=== PATIENT | female | born 1950 | race Caucasian/White ===

== ENCOUNTER 2017-06-15 08:50 | Emergency (ER) | payer OTHER ==
[2017-06-15] MEDS ORDERED: methylPREDNISolone Sod Succ/PF 125 MG/2 ML VIAL ONE (09:23)
[2017-06-15] MEDS ORDERED: diphenhydrAMINE 50 MG/ML VIAL ONE (09:23)
[2017-06-15] MEDS ORDERED: Water For Inject, Bacteriostat 30 ML ONE (09:24)
[2017-06-15] MEDS ORDERED: Famotidine/PF 20 mg/2ml Vial ONE (09:25)
== END 2017-06-15 11:29 | disposition home or self-care (01) ==
LOC: ERS 08:50
DX: L50.0 Allergic urticaria (principal); Z79.899 Other long term (current) drug therapy
CPT/HCPCS: 96374; 96375; J1200; J2930; S0028

== ENCOUNTER 2017-11-05 17:12 | Inpatient (IN) | payer OTHER ==
[2017-11-05] MEDS ORDERED: Famotidine 20 MG TAB ONE (18:08)
[2017-11-05] MEDS ORDERED: diphenhydrAMINE 50 MG/ML VIAL ONE (18:09)
[2017-11-05] MEDS ORDERED: methylPREDNISolone Sod Succ/PF 125 MG/2 ML VIAL ONE (19:20)
[2017-11-05] MEDS: Sodium Chloride 0.9% 1,000 ML IV SCH (22:41)
[2017-11-05 23:56] VITALS: BMI 32.3
[2017-11-06] MEDS ORDERED: methylPREDNISolone Sod Succ/PF 125 MG/2 ML VIAL IVP SCH ×2 (04:00→09:45)
[2017-11-06] MEDS ORDERED: Ondansetron HCl/PF 4 MG/2 ML Vial IVP PRN (04:43)
[2017-11-06] MEDS ORDERED: Acetaminophen 325 MG TAB PO PRN (04:43)
[2017-11-06] MEDS ORDERED: Ondansetron ODT 4 MG TAB PO PRN (04:43)
[2017-11-06] MEDS ORDERED: Senokot 8.6 MG TAB PO PRN (04:43)
--- NOTE | 2017-11-06 05:16 | HP ---
DATE OF ADMISSION: 11/05/2017 The patient was seen and examined on 11/05/2017. CHIEF COMPLAINT: Generalized itching with lip swelling of 1 day duration. PRIMARY CARE PHYSICIAN: Dr. Good. 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 HISTORY OF PRESENT ILLNESS: The patient is a 67-year-old female with 2 episodes of angioedema in the last 2 years, presented to the emergency room with above symptoms. Around 5:30 a.m. when she woke up, she noticed that her lips were swollen. She also had some generalized rash. At Dr. Good's office, she received intramuscular steroid injection. Her symptoms, however, continued to progress despite taking prednisone. She then presented to the emergency room. She denies any insect bite or eating any new food. No swallowing difficulty, wheezing or shortness of breath reported. The patient had taken Aleve yesterday. PAST MEDICAL HISTORY: Two episodes of angioedema. The patient had extensive workup with hairspring inspector, Dr. Luis Ch in 05/2017. Per patient report, she was found to have mild CEDAR allergy. Otherwise, her workup was negative. PAST SURGICAL HISTORY: 1. Bilateral total hip replacement. 2. Left knee surgery. ALLERGIES: No known drug allergies. HOME MEDICATIONS: Prednisone. She cannot recollect all other home meds. SOCIAL HISTORY: The patient currently lives at home with her family. Makes her own decisions with the help of her family. She denies any smoking or drug use. She drinks one beer every night. FAMILY HISTORY: Positive for hypertension, rheumatoid arthritis, Crohn's disease as well as malignancy. REVIEW OF SYSTEMS: The following complete review of systems was negative, unless otherwise mentioned in the HPI or below: Constitutional: Weight loss or gain, ability to conduct usual activities. Skin: Rash, itching. Eyes: Double vision, pain. ENT/Mouth: Nose bleeding, neck stiffness, pain, tenderness. Cardiovascular: Palpitations, dyspnea on exertion, orthopnea. Respiratory: Shortness of breath, wheezing, cough, hemoptysis, fever or night sweats. Gastrointestinal: Poor appetite, abdominal pain, heartburn, nausea, vomiting, constipation, or diarrhea. Genitourinary: Urgency, frequency, dysuria, nocturia. Musculoskeletal: Pain, swelling. Neurologic/Psychiatric: Anxiety, depression. Allergy/Immunologic: Skin rash, bleeding tendency. PHYSICAL EXAMINATION: VITAL SIGNS: In the emergency room showed temperature 98.5, respirations 20, pulse 98, blood pressure 162/99 with O2 saturation 97% on room air. GENERAL: A 67-year-old female in no apparent distress. Lip swelling noted. HEENT: Head atraumatic, normocephalic. Sclerae are anicteric. Moist mucous membranes. No oral lesion except for upper lip swelling. NECK: Supple, no JVD, no stridor. LUNGS: Clear to auscultation bilaterally, no wheezing, rales, rhonchi. HEART: S1, S2 present. Regular rate and rhythm. No murmur, rubs, or gallops appreciated. ABDOMEN: Soft, nontender, bowel sounds present, no rebound or guarding. EXTREMITIES: No edema or calf tenderness. NEUROLOGIC: Grossly nonfocal, moves all four extremities. PSYCHIATRY: Alert, awake, oriented x3. SKIN: Warm and dry. Rashes have improved. LYMPH NODES: No palpable lymph nodes in the neck. PERIPHERAL VASCULAR: Radial pulses palpable bilaterally. MUSCULOSKELETAL: No joint swelling or tenderness. LABORATORY AND X-RAY FINDINGS: Telemetry monitoring by my review showed sinus rhythm. ESR was 8. CBC two months ago showed WBC of 4.5 with hemoglobin of 13.8, hematocrit of 41.6. Chemistry at that time showed normal electrolytes. TSH was 0.34. MAKAYLA was negative 2 years ago. IMPRESSION AND PLAN: 1. Angioedema of unclear etiology. The patient had extensive testing with allergies last year. The only possibility I can think is NSAID induced angioedema, probably augmented by alcohol use. We will continue H1 and H2 blockers with steroids. The patient can probably be discharged in next 24 hours and oral medications for the next 2-3 days. We will continue to monitor for now. 2. Chronic kidney disease stage 2. 3. History of angioedema. Plan of care was discussed with the patient in detail, she stated understanding. MTDD
[2017-11-06] MEDS: diphenhydrAMINE 25 MG CAP PO SCH ×3 (05:37→22:34)
[2017-11-06] MEDS: hydrOXYzine 25 MG TAB PO PRN ×2 (06:01→17:09)
[2017-11-06] MEDS: Sodium Chloride 0.9% 1,000 ML IV SCH (06:04)
[2017-11-06] MEDS: Famotidine 20 MG TAB PO SCH ×2 (08:24→20:00)
[2017-11-06] MEDS ORDERED: diphenhydrAMINE 50 MG/ML VIAL IVP SCH (09:45)
--- NOTE | 2017-11-06 17:08 | PDOC.PN ---
- Subjective Encounter Start Date: 11/06/17 Encounter Start Time: 16:45 Subjective: f/u for allergic reaction and angioedema on Solumedrol, Pepcid and -: Benadryl. Still has some pruritus but improved. Apparently ran out of -: daily Prednisone and Antihistamine Rx prior to admit. - Objective Resuscitation Status: Resuscitation Status FULL:Full Resuscitation MAR Reviewed: Yes Vital Signs & Weight: Vital Signs (12 hours) Temp Pulse Resp BP Pulse Ox 11/06/17 15:26 98.1 F 82 18 137/66 93 L 11/06/17 11:40 98.0 F 79 16 142/65 H 95 11/06/17 08:00 98.1 F 82 16 11/06/17 07:31 98.1 F 82 16 148/80 H 92 L Weight Weight 200 lb 12.8 oz I&O: 11/05/17 11/06/17 11/07/17 06:59 06:59 06:59 Intake Total 1242 12 Balance 1242 12 Additional Labs: Laboratory Tests 11/05/17 14:14 MAKAYLA Screen Negative MAKAYLA IgG Screen Negative Anti-ds DNA IgG Ab 1.0 EKG Reviewed by me: Yes (Tele - SR in 80's) Phys Exam - Physical Examination Constitutional: NAD mild perioral edema on lips HEENT: PERRLA, moist MMs, sclera anicteric, oral pharynx no lesions Neck: no nodes, no JVD, supple Respiratory: no wheezing, no rales, no rhonchi, clear to auscultation bilateral Cardiovascular: RRR, no significant murmur, no rub, gallop Gastrointestinal: soft, non-tender, no distention, positive bowel sounds mild edema on hands and fingers Musculoskeletal: pulses present Neurological: non-focal, normal sensation, moves all 4 limbs Psychiatric: normal affect, A&O x 3 Deviation from normal: mild erythematous patches in axillary region bilat Skin: normal turgor, cap refill <2 seconds Dx/Plan (1) [id number]-cupxevanu Code(s): T78.3XXA - ANGIONEUROTIC EDEMA, INITIAL ENCOUNTER Status: Acute Comment: Slow improvement, ? etiology, ? rebound-effect with abrupt d/c Prednisone, continue Solumedrol, Benadryl and Pepcid, overall improving - Plan Stable overall -: Continue Solumedrol IV -: Continue Benadryl and Pepcid -: Atarax prn -: Likely home in am 11/07/17 * .
[2017-11-06] MEDS ORDERED: diphenhydrAMINE 25 MG CAP PO SCH (19:00)
[2017-11-07] MEDS ORDERED: diphenhydrAMINE 50 MG/ML VIAL IVP SCH (03:15)
[2017-11-07] MEDS: diphenhydrAMINE 25 MG CAP PO SCH ×3 (05:51→17:25)
[2017-11-07] MEDS: hydrOXYzine 25 MG TAB PO PRN ×2 (05:55→18:12)
[2017-11-07] MEDS: Famotidine 20 MG TAB PO SCH (07:56)
[2017-11-07] MEDS ORDERED: diphenhydrAMINE 25 MG CAP PO SCH (09:45)
[2017-11-07] MEDS ORDERED: Loratadine 10 MG TAB PO SCH (11:30)
--- NOTE | 2017-11-07 11:43 | PDOC.PN ---
- Subjective Encounter Start Date: 11/07/17 Encounter Start Time: 11:00 Subjective: f/u for angioedema and allergic rxn on Solumedrol, Benadryl, Pepcid -: and Atarax. Continues with outbreaks on skin and ears, throat this am. -: Improved after Benadryl given. - Objective Resuscitation Status: Resuscitation Status FULL:Full Resuscitation MAR Reviewed: Yes Vital Signs & Weight: Vital Signs (12 hours) Temp Pulse Resp BP BP Pulse Ox 11/07/17 08:00 98.3 F 81 16 11/07/17 07:16 98.3 F 81 16 141/77 H 99 11/07/17 03:05 97.5 F L 74 18 166/81 H 95 Weight Weight 205 lb 4.8 oz I&O: 11/06/17 11/07/17 11/08/17 06:59 06:59 06:59 Intake Total 1242 374 480 Balance 1242 374 480 Additional Labs: Laboratory Tests 11/05/17 14:14 MAKAYLA Screen Negative MAKAYLA IgG Screen Negative Anti-ds DNA IgG Ab 1.0 EKG Reviewed by me: Yes (Tele - SR) Phys Exam - Physical Examination Constitutional: NAD R pinna edema and erythema, no glossal edema HEENT: PERRLA, moist MMs, sclera anicteric, oral pharynx no lesions Neck: no nodes, no JVD, supple, full ROM Respiratory: no wheezing, no rales, no rhonchi, clear to auscultation bilateral S1, S2 Cardiovascular: RRR, no significant murmur, no rub, gallop Gastrointestinal: soft, non-tender, no distention, positive bowel sounds Musculoskeletal: no edema, pulses present Neurological: non-focal, normal sensation, moves all 4 limbs Psychiatric: normal affect, A&O x 3 Deviation from normal: pink patches on inner upper extremities, R pinna erythema and edema scattered erythema on bra line and lateral chest Skin: normal turgor, cap refill <2 seconds Dx/Plan (1) Rjbfk-psqbh-jrtbfnowe Code(s): T78.3XXA - ANGIONEUROTIC EDEMA, INITIAL ENCOUNTER Status: Acute Comment: Slow improvement, ? etiology, ? rebound-effect with abrupt d/c Prednisone, continue Solumedrol, Benadryl and Pepcid, add Claritin 10mg daily - Plan out of bed/ambulate Stable overall -: Recurrent flare of urticaria, erythema despite tx, add Claritin, continue -: Benadryl, transition to Prednisone in next 24h -: Convert to inpt status due to persistent angioedema -: Transfer to medical floor * .
[2017-11-08] MEDS: diphenhydrAMINE 25 MG CAP PO SCH ×4 (00:17→18:29)
[2017-11-08] MEDS: Famotidine 20 MG TAB PO SCH ×3 (00:17→21:45)
[2017-11-08] MEDS: diphenhydrAMINE 2% CREAM 28.4 GM TUBE TOP PRN ×2 (00:25→09:19)
[2017-11-08] MEDS: hydrOXYzine 25 MG TAB PO PRN ×2 (12:02→13:30)
[2017-11-08] MEDS ORDERED: Lorazepam 0.5 MG TAB PO PRN (14:24)
--- NOTE | 2017-11-08 14:26 | PDOC.PN ---
- Subjective Encounter Start Date: 11/08/17 Encounter Start Time: 14:00 Subjective: f/u for angioedema and urticaria. c/o of SOB and itching beginning this -: afternoon. Receiving Solumedrol, Benadryl, Atarax, Claritin and Pepcid. -: No diarrhea or dysuria. - Objective Resuscitation Status: Resuscitation Status FULL:Full Resuscitation MAR Reviewed: Yes Vital Signs & Weight: Vital Signs (12 hours) Temp Pulse Resp BP Pulse Ox 11/08/17 08:00 98.0 F 71 18 148/73 H 98 Weight Weight 205 lb 4.8 oz I&O: 11/07/17 11/08/17 11/09/17 06:59 06:59 06:59 Intake Total 374 720 Balance 374 720 Phys Exam - Physical Examination anxious, hyperventilating no glossal edema, no perioral edema, no lid edema HEENT: PERRLA, moist MMs, sclera anicteric, TM's clear, oral pharynx no lesions Neck: no nodes, no JVD, supple, full ROM Respiratory: no wheezing, no rales, no rhonchi, clear to auscultation bilateral S1, S2 Cardiovascular: RRR, no significant murmur, no rub, gallop Gastrointestinal: soft, non-tender, no distention, positive bowel sounds Musculoskeletal: no edema, pulses present Neurological: non-focal, normal sensation, moves all 4 limbs Psychiatric: A&O x 3 Skin: no rash, normal turgor, cap refill <2 seconds Dx/Plan (1) Pwjfg-zlibr-rhaczyduw Code(s): T78.3XXA - ANGIONEUROTIC EDEMA, INITIAL ENCOUNTER Status: Acute Comment: Slow improvement, ? etiology, ? rebound-effect with abrupt d/c Prednisone, continue Solumedrol, Benadryl and Pepcid, add Claritin 10mg daily, ? stress reaction with anxiety, add Ativan 0.5mg po q8h prn - Plan out of bed/ambulate Stable overall -: Add Ativan 0.5mg po q8h prn anxiety -: Continue Solumedrol, Benadryl, Pepcid and Claritin -: Labs: CMP, CBC, TSH, Mg++, PO3, UA, A1C -: ? Consult for Rheumatology * .
[2017-11-08] MEDS ORDERED: diphenhydrAMINE 50 MG/ML VIAL IVP SCH (14:30)
[2017-11-08] MEDS ORDERED: Lorazepam 2 MG/ML VIAL SLOW IVP SCH (14:30)
[2017-11-08 16:17] LABS: Hemoglobin A1c 5.2 % (4.0-6.0)
[2017-11-08 16:34] LABS: ALT (SGPT) 14 U/L (8-55); AST (SGOT) 11 U/L (5-34); Albumin 3.6 g/dL (3.4-4.8); Alkaline Phosphatase 81 U/L (40-150); Anion Gap 8 mmol/L (10-20); BUN (Urea Nitrogen) 22 mg/dL (9.8-20.1); Bilirubin, Total 0.2 mg/dL (0.2-1.2); Calc. Creatinine Clearance 110 mL/min (70-130); Calcium 9.4 mg/dL (7.8-10.44); Carbon Dioxide 24 mmol/L (23-31); Chloride 109 mmol/L (98-107); Estimated GFR-MDRD 78; Globulin 2.8 g/dL (2.4-3.5); Glucose 167 mg/dL (80-115); Magnesium 2.2 mg/dL (1.6-2.6); Phosphorus 2.2 mg/dL (2.3-4.7); Potassium 4.1 mmol/L (3.5-5.1); Protein, Total 6.4 g/dL (6.0-8.3); Sodium 137 mmol/L (136-145)
[2017-11-08 16:56] LABS: Band 2 % (5-11); Hemoglobin 13.5 g/dL (12.0-16.0); Lymphocytes 8 % (21-51); MDiff Complete? YES; Mean Corpuscular HGB CONC 34.2 g/dL (32.0-36.0); Mean Corpuscular Hemoglobin 30.7 pg (27.0-31.0); Mean Corpuscular Volume 89.6 fl (81.0-99.0); Mean Platelet Volume 7.2 fL (7.4-10.4); Monocytes 6 % (0-10); Neutrophil 83 % (42-75); PLT Morphology Comment Appears Adequate; Platelet Count 281 thou/uL (130-400); Reactive Lymphocytes 1 % (0-10); White Blood Cell (WBC) Count 12.1 thou/uL (4.8-10.8)
[2017-11-08 19:50] LABS: Bilirubin Negative (Negative); Blood, Urine Negative (Negative); Clarity CLEAR (Clear); Glucose, Urine (Dipstick) Negative (Negative); Leukocyte Negative (Negative); Nitrite Negative (Negative); Protein, Urine (Dipstick) Negative (Neg-Trace); Specific Gravity, Urine 1.007 (1.002-1.036); Urobilinogen 0.2 mg/dL (0.2-1.0); pH, Urine 6.5 (5.0-9.0)
[2017-11-08 19:53] LABS: Bacteria/HPF None Seen HPF (None Seen); Hyaline Casts/LPF 0-3 HYALINE CAST LPF (0-3 Hyaline); Squamous Epithelial None Seen HPF (0-3); WBC/HPF None Seen HPF (0-3)
[2017-11-09] MEDS: diphenhydrAMINE 25 MG CAP PO SCH ×4 (00:07→20:31)
[2017-11-09] MEDS: Famotidine 20 MG TAB PO SCH ×2 (09:05→20:30)
[2017-11-09] MEDS: diphenhydrAMINE 2% CREAM 28.4 GM TUBE TOP PRN (09:09)
[2017-11-09] MEDS: predniSONE 20 MG TAB PO SCH (17:12)
[2017-11-09] MEDS: K-Phos Neutral 250 MG TAB PO SCH (17:12)
[2017-11-09 17:58] LABS: CRP (Inflammatory) Less than 0.50 mg/dL (= or < 0.5)
--- NOTE | 2017-11-09 22:26 | PDOC.PN ---
- Subjective Encounter Start Date: 11/09/17 Encounter Start Time: 14:00 Patient seen and examined for persistent angioedema/Urticaria. Gen rash. Frustrated due to lack of improvement. Lip swelling resolved. No overnight events - Objective Resuscitation Status: Resuscitation Status FULL:Full Resuscitation MAR Reviewed: Yes Vital Signs & Weight: Vital Signs (12 hours) Temp Pulse Resp BP BP Pulse Ox 11/09/17 20:00 98.2 F 79 16 97 11/09/17 19:00 98.2 F 79 16 179/79 H 97 11/09/17 16:30 98.1 F 83 20 182/88 H 97 11/09/17 16:00 98 11/09/17 12:15 98.1 F 73 16 166/80 H 97 11/09/17 12:00 98 Weight Weight 205 lb 4.8 oz I&O: 11/08/17 11/09/17 11/10/17 06:59 06:59 06:59 Intake Total 720 Balance 720 Result Diagrams: 11/08/17 16:03 11/08/17 16:03 Phys Exam - Physical Examination Constitutional: NAD Respiratory: no wheezing, no rhonchi Cardiovascular: RRR, no rub Gastrointestinal: soft, non-tender, positive bowel sounds Musculoskeletal: no edema Neurological: moves all 4 limbs Psychiatric: A&O x 3 Skin: normal turgor Deviation from normal: Gen maculo-papular rash Dx/Plan (1) Yribq-imaue-gddrtxptv Code(s): T78.3XXA - ANGIONEUROTIC EDEMA, INITIAL ENCOUNTER Status: Acute Plan: Consult ID, Rheumatology. Check C1 esterase level, C3, C4, ESR, CRP, SPEP, Will change IV steroids to PO, Cont Pepcid. Change Benadryl to PO Comment: slow improvement (2) CKD (chronic kidney disease) stage 2, GFR 60-89 ml/min Code(s): N18.2 - CHRONIC KIDNEY DISEASE, STAGE 2 (MILD) Status: Chronic (3) Hypophosphatemia Code(s): E83.39 - OTHER DISORDERS OF PHOSPHORUS METABOLISM Status: Acute Plan: Will replace (4) Abnormal TSH Code(s): R94.6 - ABNORMAL RESULTS OF THYROID FUNCTION STUDIES Status: Acute Comment: Repeat as outpt after 4 weeks - Plan DVT proph w/SCDs Review of Systems - Review of Systems Respiratory: negative: Cough, Dry, Shortness of Breath, Hemoptysis, SOB with Excertion, Pleuritic Pain, Sputum, Wheezing Cardiovascular: negative: chest pain, palpitations, orthopnea, paroxysmal nocturnal dyspnea, edema, light headedness, other Gastrointestinal: negative: Nausea, Vomiting, Abdominal Pain, Diarrhea, Constipation, Melena, Hematochezia, Other - Medications/Allergies Allergies/Adverse Reactions: Allergies Allergy/AdvReac Type Severity Reaction Status Date / Time No Known Drug Allergies Allergy Verified 01/22/17 08:59 Medications: Current Medications Acetaminophen (Tylenol) 650 mg PO Q4H PRN PRN Reason: Headache/Fever or Pain Last Admin: 11/06/17 10:04 Dose: 650 mg Diphenhydramine HCl (Benadryl) 25 mg PO TID [facility] Last Admin: 11/09/17 20:31 Dose: 25 mg Famotidine (Pepcid) 20 mg PO BID [facility] Last Admin: 11/09/17 20:30 Dose: 20 mg Hydroxyzine HCl (Atarax) 25 mg PO Q6H PRN PRN Reason: Itching Last Admin: 11/08/17 13:30 Dose: 25 mg Loratadine (Claritin) 10 mg PO DAILYPRN [facility] Last Admin: 11/07/17 12:15 Dose: 10 mg Lorazepam (Ativan) 0.5 mg PO Q8H PRN PRN Reason: Anxiety Ondansetron HCl (Zofran Odt) 4 mg PO Q6H PRN PRN Reason: Nausea/Vomiting Ondansetron HCl (Zofran) 4 mg IVP Q6H PRN PRN Reason: Nausea/Vomiting Phosphorus (Kphos Neutral) 250 mg PO TID-[facility] Last Admin: 11/09/17 17:12 Dose: 250 mg Prednisone (Prednisone) 20 mg PO BID-[facility] Last Admin: 11/09/17 17:12 Dose: 20 mg Senna (Senokot) 2 tab PO HSPRN PRN PRN Reason: Constipation Sodium Chloride (Flush - Normal Saline) 10 ml IVF Q12HR [facility] Last Admin: 11/09/17 20:31 Dose: 10 ml Sodium Chloride (Flush - Normal Saline) 10 ml IVF PRN PRN PRN Reason: Saline Flush Last Admin: 11/09/17 06:24 Dose: 10 ml Zinc Acetate/Diphenhydramine (Benadryl 2% Cream) 0 gm TOP TIDPRN PRN PRN Reason: .ITCHING Last Admin: 11/09/17 09:09 Dose: 1 applic
[2017-11-10] MEDS ORDERED: Labetalol HCl 100 MG/20 ML VIAL SLOW IVP PRN (06:59)
[2017-11-10] MEDS ORDERED: Amlodipine 5 MG TAB PO SCH (07:00)
[2017-11-10] MEDS: predniSONE 20 MG TAB PO SCH ×2 (08:40→18:18)
[2017-11-10] MEDS: K-Phos Neutral 250 MG TAB PO SCH ×3 (08:40→17:40)
[2017-11-10] MEDS: Amlodipine 5 MG TAB PO SCH (08:41)
[2017-11-10] MEDS: Famotidine 20 MG TAB PO SCH ×2 (08:41→20:42)
[2017-11-10] MEDS: diphenhydrAMINE 25 MG CAP PO SCH ×3 (08:41→20:42)
[2017-11-10] MEDS: diphenhydrAMINE 2% CREAM 28.4 GM TUBE TOP PRN ×2 (08:49→18:19)
[2017-11-10 15:23] LABS: HBSAg Index 0.17 S/CO (0-0.99); HIV (1/2) Antibody/Antigen Non-Reactive (NonReactive); HIV 1/2 INDEX 0.09 S/CO (<1.00); Hep B Surf Ag Non-Reactive S/CO (NonReactive); Hep C IgG Ab Non-Reactive (NonReactive); Hep C Index 0.06 S/CO (0-0.79)
[2017-11-10 16:17] LABS: Hep B Surf AB Reactive (NonReactive)
[2017-11-10 16:18] LABS: HBSAB Concentration 1130.12 mIU/mL
--- NOTE | 2017-11-10 18:05 | CON ---
DATE OF CONSULTATION: 11/10/2017 REASON FOR CONSULTATION: Angioedema with urticaria. HISTORY OF PRESENT ILLNESS: A 67-year-old was admitted a few days ago. This is the second admission to this hospital for the same problem, has the only significant past medical history recurring episo paulina of urticaria with angioedema. Patient has had this developed over the past 2 years approximately and has had extensive evaluation including the allergy consultation with Dr. Luis Ch in the area . I am not a previa of all the extent of the workup, but I know for sure that she did not have aller gy testing which did not show any significant hypersensitivity reaction, anyway she developed the lat est episode and has been admitted and is currently being treated. She denies any headaches, no visua l symptoms. She has a little bit of what is described as dysphonia which is probably related to eliza oedema. She denies any neck pain, no back pain, no dyspnea, no chest pain, no abdominal pain, no pravin rrhea. No genitourinary symptoms, no joint symptoms. She has the skin disorder as noted above. PAST MEDICAL HISTORY: Chronic angioedema, urticaria presumably idiopathic. ALLERGIES: None reported. MEDICATIONS: Tylenol, Norvasc, Benadryl, Pepcid, Atarax, Normodyne, Claritin, Ativan, Zofran, predni sone, Senokot, Benadryl. FAMILY HISTORY: Hypertension, rheumatoid arthritis, Crohn's disease and has some form of malignancy, not clear which. SOCIAL HISTORY: Lives in the area, never a smoker, drinks beer daily. PHYSICAL EXAMINATION: VITAL SIGNS: Temperature is normal. BP 130/60, pulse 74, O2 sat 97%. Blood pressure 190/93. SKIN: Shows the areas of urticaria in the upper extremities and the upper chest. She has no lymphad enopathy noted. HEENT: Ocular movements conjugate. Pupils are equal. Oral cavity moist. No stridor noted. NECK: Supple. LUNGS: Symmetric clear breath sounds. HEART: S1, S2, regular rate. ABDOMEN: Soft, not distended or tender. No ascites. No bladder distention. EXTREMITIES: No joint inflammatory activity noted. Pulses are 1+ and chills. NEUROLOGIC: Nonfocal. LABORATORY DATA: White cell count 12.1, a predominance of mature neutrophils, hemoglobin 13.5, plate lets of 281. Sodium 137, creatinine 0.75. Phosphorus 2.2. Liver profile normal. Albumin 3.6. TSH 0.1137. Urinalysis normal, complement normal. Radiology studies. The only thing we have is a hip x-ray from past, which is not remarkable. There is a brain CT from 2016 with no acute intracranial f indings and a chest x-ray from 09/24/2016, no radiographic evidence of abnormalities. ASSESSMENT: Chronic urticaria, angioedema, presumably idiopathic with another episode. DISCUSSION: At this point, I am going to complete the workup to make sure that she does not have sec ondary forms of angioedema and urticaria. I have advised her to discontinue all NSAIDs and aspirin s da those can be associated with angioedema. Usually, allergy testing is not helpful in this kind o f situation. She already had it anyways and did not show any significant findings. Check hepatitis B surface antigen antibody, hepatitis C serology, cryoglobulin titer, HIV. We will send C1q esterase assays and check chest x-ray. Consider abdomen and pelvis CT scan since lymphoma can be associated with urticaria and angioedema. Check thyroglobulin and thyroid autoantibodies studies since she does have decreased TSH could reflect some autoimmune thyroid issues.
--- NOTE | 2017-11-10 22:27 | PDOC.PN ---
- Subjective Encounter Start Date: 11/10/17 Encounter Start Time: 09:00 Patient seen and examined. Rash still present. No overnight events - Objective Resuscitation Status: Resuscitation Status FULL:Full Resuscitation MAR Reviewed: Yes Vital Signs & Weight: Vital Signs (12 hours) Temp Pulse Resp BP BP Pulse Ox 11/10/17 20:00 97.9 F 77 16 98 11/10/17 19:02 97.9 F 77 16 122/69 98 11/10/17 12:08 130/60 Weight Weight 205 lb 4.8 oz Result Diagrams: 11/08/17 16:03 11/08/17 16:03 Additional Labs: Laboratory Tests 11/09/17 11/09/17 11/09/17 16:54 16:54 16:54 ESR Westergren 3 C-Reactive Protein Less than 0.50 Complement C3 147.00 Complement C4 27.20 Phys Exam - Physical Examination Constitutional: NAD Respiratory: no wheezing, no rhonchi Cardiovascular: RRR, no rub Gastrointestinal: soft, non-tender, positive bowel sounds Musculoskeletal: no edema Neurological: moves all 4 limbs Skin: normal turgor Deviation from normal: Similar skin rash Dx/Plan (1) Eydri-gzrzm-mxjbndqsk Code(s): T78.3XXA - ANGIONEUROTIC EDEMA, INITIAL ENCOUNTER Status: Acute Plan: Await ID input, Cont Steroids, Pepcid and Benadryl Comment: slow improvement (2) CKD (chronic kidney disease) stage 2, GFR 60-89 ml/min Code(s): N18.2 - CHRONIC KIDNEY DISEASE, STAGE 2 (MILD) Status: Chronic (3) Hypophosphatemia Code(s): E83.39 - OTHER DISORDERS OF PHOSPHORUS METABOLISM Status: Acute (4) Abnormal TSH Code(s): R94.6 - ABNORMAL RESULTS OF THYROID FUNCTION STUDIES Status: Acute Comment: Repeat as outpt after 4 weeks (5) HTN (hypertension) Code(s): I10 - ESSENTIAL (PRIMARY) HYPERTENSION Status: Acute Plan: Start Amlodipine - Plan out of bed/ambulate, DVT proph w/SCDs Review of Systems - Review of Systems Cardiovascular: negative: chest pain, palpitations, orthopnea, paroxysmal nocturnal dyspnea, edema, light headedness, other Gastrointestinal: negative: Nausea, Vomiting, Abdominal Pain, Diarrhea, Constipation, Melena, Hematochezia, Other - Medications/Allergies Allergies/Adverse Reactions: Allergies Allergy/AdvReac Type Severity Reaction Status Date / Time No Known Drug Allergies Allergy Verified 01/22/17 08:59 Medications: Current Medications Acetaminophen (Tylenol) 650 mg PO Q4H PRN PRN Reason: Headache/Fever or Pain Last Admin: 11/06/17 10:04 Dose: 650 mg Amlodipine Besylate (Norvasc) 2.5 mg PO DAILY [facility] Last Admin: 11/10/17 08:41 Dose: 2.5 mg Diphenhydramine HCl (Benadryl) 25 mg PO TID [facility] Last Admin: 11/10/17 20:42 Dose: 25 mg Famotidine (Pepcid) 20 mg PO BID [facility] Last Admin: 11/10/17 20:42 Dose: 20 mg Hydroxyzine HCl (Atarax) 25 mg PO Q6H PRN PRN Reason: Itching Last Admin: 11/08/17 13:30 Dose: 25 mg Labetalol HCl (Normodyne) 10 mg SLOW IVP Q4H PRN PRN Reason: Systolic BP > 180 Loratadine (Claritin) 10 mg PO DAILYPRN [facility] Last Admin: 11/07/17 12:15 Dose: 10 mg Lorazepam (Ativan) 0.5 mg PO Q8H PRN PRN Reason: Anxiety Ondansetron HCl (Zofran Odt) 4 mg PO Q6H PRN PRN Reason: Nausea/Vomiting Ondansetron HCl (Zofran) 4 mg IVP Q6H PRN PRN Reason: Nausea/Vomiting Phosphorus (Kphos Neutral) 250 mg PO TID-[facility] Last Admin: 11/10/17 17:40 Dose: 250 mg Prednisone (Prednisone) 20 mg PO BID-[facility] Last Admin: 11/10/17 18:18 Dose: 20 mg Senna (Senokot) 2 tab PO HSPRN PRN PRN Reason: Constipation Sodium Chloride (Flush - Normal Saline) 10 ml IVF Q12HR [facility] Last Admin: 11/10/17 20:42 Dose: 10 ml Sodium Chloride (Flush - Normal Saline) 10 ml IVF PRN PRN PRN Reason: Saline Flush Last Admin: 11/09/17 06:24 Dose: 10 ml Zinc Acetate/Diphenhydramine (Benadryl 2% Cream) 0 gm TOP TIDPRN PRN PRN Reason: .ITCHING Last Admin: 11/10/17 18:19 Dose: 1 applic
[2017-11-11 07:21] VITALS: BP 142/74; TEMP 98.5
[2017-11-11] MEDS: diphenhydrAMINE 25 MG CAP PO SCH ×2 (08:38→15:19)
[2017-11-11] MEDS: Famotidine 20 MG TAB PO SCH (08:38)
[2017-11-11] MEDS: Amlodipine 5 MG TAB PO SCH (08:38)
[2017-11-11] MEDS: K-Phos Neutral 250 MG TAB PO SCH ×3 (08:38→17:46)
[2017-11-11] MEDS: predniSONE 20 MG TAB PO SCH ×2 (08:38→17:46)
[2017-11-11 13:09] LABS: EliA Thy New Method **** NEW METHOD ****; Thyroglobulin Antibody Less than 12.0 IU/mL (<40 Normal); Thyroid Peroxidase IgG Ab Less than 4.0 IU/mL (<25 Normal)
--- NOTE | 2017-11-12 08:59 | DIS ---
DATE OF DISCHARGE: 11/11/2017 DISCHARGE DISPOSITION: Home. FOLLOWUP: With Infectious Disease, Dr. Stewart and primary care physician, Dr. Good. The patient was seen on the day of discharge. Denies any new complaints. The patient was advised to discontinue aspirin and all other nonsteroidal anti-inflammatory drugs per Infectious Disease. DISCHARGE MEDICATIONS: Amlodipine 2.5 mg daily, Claritin 10 mg daily, Pepcid 20 mg b.i.d. for 1 more week, prednisone 20 mg daily for 2 days, Atarax as needed, fish oil daily, vitamin D3 daily. SIGNIFICANT LABORATORY DATA: 1. Phosphorus 2.2, replaced. 2. Hemoglobin A1c 5.2. 3. TSH was 0.1137. 4. HIV negative. 5. Hepatitis C antibody negative. 6. Hepatitis B surface antigen nonreactive. 7. C3-C4 normal. 8. Thyroglobulin antibody negative. Urinalysis was negative. TESTS PENDING AT DISCHARGE: Cryoglobulin serum electrophoresis and C1 esterase inhibitor function. Primary care physician is advised to follow. BRIEF HOSPITAL COURSE: Patient is 67-year-old female with 2 episodes of angioedema in the past, pres ented to the hospital with generalized itching and lip swelling of 1 day duration. Please refer to t he history and physical dated 11/15/2017 for further details. The patient was admitted to the hospital with a diagnosis of angioedema of unclear etiology. She jim wed very slow improvement despite starting H1 blockers, H2 blockers and steroids. The patient was ev aluated by Infectious Disease, Dr. Stewart. She underwent a testing as discussed above. She was advis ed to discontinue nonsteroidal anti-inflammatory drugs. Alcohol cessation was also emphasized. She appears stable for discharge. She will follow up with Dr. Good for the pending tests results. FINAL DIAGNOSES: 1. Angioedema of unclear etiology. 2. Urticaria. 3. Chronic kidney disease stage 2. 4. Abnormal TSH. Repeat TSH level as outpatient is recommended. Primary care physician advised to follow. 5. New diagnosis of hypertension. Primary care physician advised to follow. BP may be elevated due to steroids. 6. Hypophosphatemia, corrected. 7. Obesity with body mass index of 33.1. Plan of care was discussed with the patient in detail. She stated understanding.
[2017-11-13 07:33] LABS: A/G Ratio 1.1 (0.7-1.7); Albumin 3.2 g/dL (2.9-4.4); Alpha 1 0.3 g/dL (0.0-0.4); Alpha 2 0.8 g/dL (0.4-1.0); Gamma 0.7 g/dL (0.4-1.8); Globulin, Total 2.8 g/dL (2.2-3.9); M-Spike Not Observed g/dL (Not Observed)
== END 2017-11-11 18:20 | disposition home or self-care (01) | DRG 916 ==
LOC: ERS 17:12 → 2SW 20:49 → OBSVTOIN 20:49 → 2NO 11-06 14:01 → 2SW 11-06 14:04 → ONC 11-07 13:38
PROVIDERS: ADMIT Emergency Medicine; ATTEND Emergency Medicine
DX: T78.3XXA Angioneurotic edema, initial encounter (principal); T39.395A Adverse effect of other nonsteroidal anti-inflammatory drugs [NSAID], initial encounter; E83.39 Other disorders of phosphorus metabolism; N18.2 Chronic kidney disease, stage 2 (mild); I10 Essential (primary) hypertension; R94.6 Abnormal results of thyroid function studies; E66.9 Obesity, unspecified; Z68.33 Body mass index [BMI] 33.0-33.9, adult; Z96.643 Presence of artificial hip joint, bilateral; Z79.899 Other long term (current) drug therapy
CPT/HCPCS: 36415; 80053; 81001; 82595; 83036; 83735; 84100; 84165; 84443; 85007; 85027; 85652; 86038; 86140; 86160; 86161; 86225; 86376; 86706; 86800; 86803; 87340; 87389; 96361; 96374; 96375; A4216; J1200; J2060; J2920; J2930; J7506

== ENCOUNTER 2017-11-28 15:55 | Outpatient (CLI) | payer OTHER | END 2017-11-28 15:56 | disposition home or self-care (01) | LOC: BICRAD 15:55 | PROVIDERS: ATTEND Family Medicine | DX: R05 Cough (principal) | CPT/HCPCS: 71046 ==

== ENCOUNTER 2017-12-16 16:10 | Outpatient (CLI) | payer OTHER | END 2017-12-16 16:11 | disposition home or self-care (01) | LOC: BICMAMMO 16:10 | PROVIDERS: ATTEND Family Medicine | DX: Z12.31 Encounter for screening mammogram for malignant neoplasm of breast (principal); Z80.3 Family history of malignant neoplasm of breast | CPT/HCPCS: 77063; 77067 ==

== ENCOUNTER 2017-12-19 15:15 | Outpatient (CLI) | payer OTHER | END 2017-12-19 15:16 | disposition home or self-care (01) | LOC: BICMAMMO 15:15 | PROVIDERS: ATTEND Family Medicine | DX: Z13.820 Encounter for screening for osteoporosis (principal); N95.1 Menopausal and female climacteric states; M85.80 Other specified disorders of bone density and structure, unspecified site | CPT/HCPCS: 77080 ==

== ENCOUNTER 2018-02-27 07:39 | Day surgery (SDC) | payer OTHER ==
[2018-02-27] MEDS ORDERED: Sodium Bicarbonate 2.5 MEQ/5 ML VIAL ONE (07:54)
[2018-02-27] MEDS ORDERED: Lidocaine 1% PF 5 ML VIAL ONE (07:55)
[2018-02-27 09:03] VITALS: BP 128/71; TEMP 98.5
--- NOTE | 2018-02-27 10:58 | ULT ---
ULTRASOUND GUIDED THYROID FNA: INDICATION: Suspicious nodule seen within the left thyroid isthmus. COMPARISON: Thyroid ultrasound from [facility] dated 01/31/18. FINDINGS: There is a complex cystic solid lesion within the left thyroid isthmus measuring 1.6 x 0.8 cm with sm all internal reflectors suspicious for small calcifications. TECHNIQUE: Informed consent was obtained. Preprocedure ultrasound was performed of this lesion. A site overlyi ng the left thyroid isthmus lesion was identified. The site was prepped and draped in the usual ster ile fashion. The subcutaneous tissues overlying the site were infiltrated with subcutaneous buffered 1% Lidocaine under ultrasound guidance, 4 separate FNAs were obtained of the lesion. Pathology was on site to process the aspirates. The patient tolerated the aspiration without difficulty. The site was then cleansed and bandaged. IMPRESSION: Successful ultrasound-guided fine needle aspirate of solid cystic lesion involving the left thyroid i sthmus. POS: [facility]
== END 2018-02-27 09:15 | disposition home or self-care (01) ==
LOC: ULT 07:39
PROVIDERS: ATTEND Otolaryngology Plastic Surgery within the Head & Neck
PROC: 0GJK3ZZ Inspection of Thyroid Gland, Percutaneous Approach (ICD-10-PCS; principal; 2018-02-27)
DX: E05.20 Thyrotoxicosis with toxic multinodular goiter without thyrotoxic crisis or storm (principal); I10 Essential (primary) hypertension; M19.90 Unspecified osteoarthritis, unspecified site; E03.9 Hypothyroidism, unspecified; K21.9 Gastro-esophageal reflux disease without esophagitis; E66.3 Overweight; Z79.899 Other long term (current) drug therapy
CPT/HCPCS: 60100; 76942; 88173; 88305; J1200; J2001; J2930; S0028

== ENCOUNTER 2018-02-27 21:07 | Emergency (ER) | payer OTHER ==
[2018-02-27] MEDS ORDERED: diphenhydrAMINE 50 MG/ML VIAL ONE (22:15)
[2018-02-27] MEDS ORDERED: methylPREDNISolone Sod Succ/PF 125 MG/2 ML VIAL ONE ×2 (22:15→22:16)
[2018-02-27] MEDS ORDERED: Famotidine 20 MG TAB ONE (22:15)
[2018-02-27] MEDS ORDERED: Famotidine/PF 20 mg/2ml Vial ONE (22:15)
== END 2018-02-27 23:25 | disposition home or self-care (01) ==
LOC: ERS 21:07
DX: T78.40XA Allergy, unspecified, initial encounter (principal); R22.0 Localized swelling, mass and lump, head
CPT/HCPCS: J1200; J2930; S0028

== ENCOUNTER 2018-03-01 07:09 | Emergency (ER) | payer OTHER ==
[2018-03-01] MEDS ORDERED: methylPREDNISolone Sod Succ/PF 125 MG/2 ML VIAL ONE (07:35)
[2018-03-01] MEDS ORDERED: Famotidine/PF 20 mg/2ml Vial ONE (07:35)
[2018-03-01] MEDS ORDERED: diphenhydrAMINE 50 MG/ML VIAL ONE (07:35)
[2018-03-01 08:29] LABS: ALT (SGPT) 13 U/L (8-55); AST (SGOT) 20 U/L (5-34); Albumin 3.9 g/dL (3.4-4.8); Alkaline Phosphatase 82 U/L (40-150); Anion Gap 14 mmol/L (10-20); BUN (Urea Nitrogen) 20 mg/dL (9.8-20.1); Bilirubin, Total 0.4 mg/dL (0.2-1.2); Calc. Creatinine Clearance 0 mL/min (70-130); Calcium 10.1 mg/dL (7.8-10.44); Carbon Dioxide 22 mmol/L (23-31); Chloride 109 mmol/L (98-107); Estimated GFR-MDRD 63; Globulin 3.1 g/dL (2.4-3.5); Glucose 109 mg/dL (80-115); Potassium 4.2 mmol/L (3.5-5.1); Sodium 141 mmol/L (136-145)
[2018-03-01 08:30] LABS: CKMB 1.5 ng/mL (0-6.6); Troponin I Less than 0.010 ng/mL (< 0.028)
[2018-03-01 09:32] LABS: Band 14 % (5-11); Hemoglobin 13.3 g/dL (12.0-16.0); Lymphocytes 11 % (21-51); MDiff Complete? YES; Mean Corpuscular HGB CONC 35.1 g/dL (32.0-36.0); Mean Corpuscular Hemoglobin 30.6 pg (27.0-31.0); Mean Corpuscular Volume 87.2 fL (78.0-98.0); Mean Platelet Volume 7.5 fL (7.4-10.4); Metamyelocyte 1 % (0-0); Monocytes 1 % (0-10); Neutrophil 73 % (42-75); Platelet Count 276 thou/uL (130-400); RBC Distribution Width 11.3 % (11.5-14.5); Red Blood Cell (RBC) Count 4.33 mill/uL (4.20-5.40); Vacuoles SLIGHT; White Blood Cell (WBC) Count 15.1 thou/uL (4.8-10.8)
== END 2018-03-01 09:58 | disposition home or self-care (01) ==
LOC: ERS 07:09
DX: T78.40XA Allergy, unspecified, initial encounter (principal); Z79.899 Other long term (current) drug therapy
CPT/HCPCS: 36415; 80053; 82553; 84484; 85025; 94760; 96365; 96375; J1200; J2930; S0028